=== PATIENT | female | born 1980 | race Caucasian/White ===

== ENCOUNTER 2022-03-20 13:30 | Emergency (ER) | payer OTHER, SELFPAY ==
--- NOTE | ~2022-03-20 | XR_ITS ---
XR abdomen/kub 1V 03/20/2022 14:03 INDICATION: Constipation. Right upper quadrant pain TECHNIQUE: KUB COMPARISON: None FINDINGS: Bowel gas pattern is normal. There is no evidence of free air, mass, organomegaly, ascites or obstruction. No abnormal calculi are seen. The bones appear intact. IMPRESSION: 1: No acute abdominal abnormality identified. Reviewed, dictated and finalized at location A.
[2022-03-20 13:35] VITALS: BP 115/70; PULSE 130; RESP 24; TEMP 36.8; O2SAT 100
--- NOTE | 2022-03-20 13:52 | ED.GENADULT ---
HPI - General Adult General Chief complaint: Abdominal Pain Stated complaint: tongue swollen and pains under left breast Time Seen by Provider: 03/20/22 14:10 Source: patient and RN notes reviewed Mode of arrival: ambulatory Limitations: no limitations History of Present Illness HPI narrative: 41-year-old female presents with concern for right upper quadrant abdominal pain, no bowel movement for 10 days. She reports she had surgery on her foot and has since then not had a bowel movement. Reports she has been taking pain medicine for her foot. She reports she has been nauseated today. Reports the right upper quadrant abdominal pain started today. She denies fever. Denies relieving or exacerbating factors of her abdominal pain. In a separate complaint, she reports she has a painful ulcer on her tongue. MD complaint: Abdominal pain Related Data Home Medications Medication Instructions Recorded Confirmed albuterol sulfate 90 mcg/actuation inh inhalation 03/20/22 aerosol inhaler aspirin 81 mg tablet,delayed tablet 03/20/22 release bupropion HCl 300 mg 24 hr tablet, tablet PO 03/20/22 extended release hydrocodone 5 mg-acetaminophen 325 tablet 03/20/22 mg tablet loratadine 10 mg tablet tablet 03/20/22 omeprazole 20 mg capsule,delayed cap 03/20/22 release rosuvastatin 5 mg tablet tablet 03/20/22 venlafaxine 150 mg cap PO 03/20/22 capsule,extended release 24 hr Allergies Allergy/AdvReac Type Severity Reaction Status Date / Time No Known Allergies Allergy Unverified 08/12/17 13:40 Review of Systems Review of Systems: CONSTITUTIONAL: Denies malaise, chills, sweats, or fever. ENT: Denies rhinorrhea, congestion, sinus pain, otalgia or sore throat. Reports an ulceration on her tongue CARDIOVASCULAR: Denies chest pain, palpitations, or edema. RESPIRATORY: Denies cough or dyspnea. GASTROINTESTINAL: Reports right upper quadrant abdominal pain, nausea. Denies vomiting, diarrhea, bloody, or mucous stools. GENITOURINARY: Denies dysuria or hematuria. MUSCULOSKELETAL: Denies myalgia. NEUROLOGIC: Denies headache. All systems reviewed & are unremarkable except as noted in HPI and below PMFSH Comments At time of signature, agree with nursing past medical, surgical, social and family history. There is no relevant family history pertinent to the presenting complaint Exam Narrative: GENERAL: Nontoxic appearing and in no acute distress. HEAD: Normocephalic, atraumatic. EYES: PERRLA, conjunctivae clear ENT: Mucous membranes moist. Oropharynx without edema, erythema. Ulceration noted on the top of the tongue and the underside of the tongue on the right side. Tonsils not enlarged and without exudate. NECK: Supple. No lymphadenopathy CHEST: Speaks in full sentences. No respiratory distress. HEART: Regular rate and rhythm. ABDOMEN: Soft, obese nondistended. Right upper quadrant tenderness. No guarding, rebound tenderness, or rigid. No pulsatilla masses. Bowel sounds present in all four quadrants. No organomegaly. Negative Villar?s sign. No periumbilical tenderness. No Supra public tenderness or distension. No surface trauma noted SKIN: Warm, dry, no rash. NEURO: Alert and oriented x3. PSYCH: Normal mood and affect Course Course Emergency Course: Discussed x-ray findings with patient, discussed limited diagnostic capability at [facility], discussed transfer to emergency department for further evaluation of symptoms. Patient chooses to not go to the emergency department at this time, she would like to be treated for constipation, she understands reasons to go to the emergency department if her symptoms worsen, or if she does not have a bowel movement after using prescribed medications in the next 24 to 36 hours. Patient is aware of diagnosis, understands and agrees to treatment plan. Anticipatory guidance given. Patient agrees to follow-up as directed and is aware of reasons to seek care at the emergency de
[2022-03-20 14:25] VITALS: BP 115/70; PULSE 105; RESP 20
== END 2022-03-20 14:25 | disposition home or self-care (01) ==
PROVIDERS: Emergency Provider Nurse Practitioner; PCP Internal Medicine
DX: K14.0 Glossitis (principal); K59.00 Constipation, unspecified; R10.11 Right upper quadrant pain; Z79.82 Long term (current) use of aspirin; E78.00 Pure hypercholesterolemia, unspecified; K21.9 Gastro-esophageal reflux disease without esophagitis; F41.9 Anxiety disorder, unspecified
CPT/HCPCS: 74018; 99203; G0463

== ENCOUNTER 2022-12-31 17:48 | Emergency (ER) | payer OTHER, SELFPAY ==
[2022-12-31 17:53] VITALS: BP 116/67; PULSE 92; RESP 16; TEMP 36.8; O2SAT 98
--- NOTE | 2022-12-31 18:17 | ED.FEMALEGU ---
HPI - Female Genitourinary General Chief complaint: Urogenital-Female Stated complaint: Urinary Problem Time Seen by Provider: 12/31/22 18:14 Source: patient and RN notes reviewed Mode of arrival: ambulatory Limitations: no limitations History of Present Illness HPI Narrative: Patient presents today complaining of a one-week history of dysuria, frequency, incomplete bladder emptying, lower abdominal pain, back pain. She has tried no [id number] treatment prior to arrival. No recent antibiotic use. She is not currently menstruating. Related Data Allergies Allergy/AdvReac Type Severity Reaction Status Date / Time No Known Allergies Allergy Unverified 08/12/17 13:40 Review of Systems Review of Systems: CONSTITUTIONAL: Denies body aches, fever, chills, or sweats. EYES: Denies visual changes, redness, or discharge. ENT: Denies rhinorrhea, congestion, sore throat, or otalgia. CARDIOVASCULAR: Denies chest pain, palpitations, or edema. RESPIRATORY: Denies cough or dyspnea. GASTROINTESTINAL: Denies nausea, vomiting, or diarrhea.+ lower abdominal pain GENITOURINARY: + dysuria, frequency SKIN: Denies rash, itching, or wounds. MUSCULOSKELETAL: Denies joint pain, or myalgia.+ back pain NEUROLOGIC: Denies headache, numbness, tingling, or weakness. PSYCH: Denies depression or anxiety. PMFSH Comments At time of signature, I have reviewed and agree with nursing past medical, surgical, social and family history unless otherwise noted. Please see nursing chart for further information. There is no relevant family history pertinent to the presenting complaint Exam Narrative: GENERAL: Well-appearing, well-nourished, and in no acute distress. HEAD: Normocephalic, atraumatic. EYES: EOMI. No redness or drainage. Conjunctivae normal. ENT: Mucous membranes pink and moist. NECK: Normal AROM. CHEST: No respiratory distress. Clear to auscultation. HEART: Regular rate and rhythm. No murmur appreciated. Normal peripheral pulses. ABDOMEN: Soft, nondistended, normal active bowel sounds.+ suprapubic tenderness.-CVAT EXTREMITIES: Normal range of motion. No edema. SKIN: Warm, dry, no rash. Capillary refill normal. Normal skin turgor. NEURO: No focal deficits. Alert and oriented x3. Gait steady. PSYCH: Normal affect. No signs of depression or anxiety. Course Course Level of Care: Express Care Visit Vital Signs Vital signs: Vital Signs Temperature 98.2 F 12/31/22 17:53 Pulse Rate 92 12/31/22 17:53 Respiratory Rate 16 12/31/22 17:53 Blood Pressure 116/67 12/31/22 17:53 Pulse Oximetry 98 12/31/22 17:53 Oxygen Delivery Room Air 12/31/22 17:53 Temperature 98.2 F 12/31/22 17:53 Pulse Rate 92 12/31/22 17:53 Respiratory Rate 16 12/31/22 17:53 Blood Pressure 116/67 12/31/22 17:53 Pulse Oximetry 98 12/31/22 17:53 Oxygen Delivery Room Air 12/31/22 17:53 Reviewed MDM - Female Genitourinary MDM Narrative Medical decision making narrative: Symptoms consistent with UTI. Prescription for cephalexin sent pharmacy. Anticipatory guidance given. Differential Diagnosis Differential diagnosis: Likely urinary tract infection, vaginitis, cystitis and other (Pyelonephritis, interstitial cystitis) Lab Data Attestation: I reviewed the patient's lab results. Labs: Urine Glucose Negative Reference Range: Negative Urine Bilirubin Negative Reference Range: Negative Urine Ketone Negative Reference Range: Negative Urine Specific [place] 1.025 Reference Range:1.001-1.035 Urine Blood 2+ Reference Range: Negative * * Urine pH
== END 2022-12-31 18:25 | disposition home or self-care (01) ==
PROVIDERS: Emergency Provider Nurse Practitioner
DX: N30.01 Acute cystitis with hematuria (principal); E78.00 Pure hypercholesterolemia, unspecified; K21.9 Gastro-esophageal reflux disease without esophagitis
CPT/HCPCS: 81003; 87086; 87088; 99213; G0463

== ENCOUNTER 2023-12-24 10:09 | Emergency (ER) | payer OTHER, SELFPAY ==
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
[2023-12-24 10:18] VITALS: BP 133/92; PULSE 78; RESP 17; O2SAT 100
--- NOTE | 2023-12-24 10:18 | ECG_ITS ---
SEE SCANNED COPY FOR CONFIRMED REPORT MTDD
[2023-12-24 10:30] VITALS: O2SAT 98
[2023-12-24 10:38] LABS: Basophils Absolute Auto 0.1 K/mm3 (0.0-0.1); Basophils Percent Auto 0.9 % (0.2-1.2); Eosinophils Absolute Auto 0.3 K/mm3 (0-0.3); Eosinophils Percent Auto 3.2 % (0-4.4); Hematocrit 52.1 % (37.0-47.0); Hemoglobin 17.2 g/dL (12.0-15.0); Immature Granulocyte Absolute 0.03 K/mm3 (0.00-0.031); Immature Granulocyte Percent A 0.3 % (0-0.5); Lymphocytes Absolute Auto 2.14 K/mm3 (0.9-3.2); Lymphocytes Percent Auto 21.1 % (18.3-44.2); Mean Corpuscular Volume 93.9 fl (80-100); Mean Platelet Volume 9.5 fl (7.4-10.4); Monocytes Absolute Auto 0.7 K/mm3 (0.1-0.6); Monocytes Percent Auto 6.5 % (2.6-8.5); Neutrophils Absolute Auto 6.9 K/mm3 (1.3-6.7); Platelet Count Result 336 k/mm3 (150-375); Red Blood Count 5.55 M/mm3 (4.2-5.4); White Blood Count 10.2 K/mm3 (4.5-10.0)
[2023-12-24 10:51] LABS: Alanine Aminotransferase 25 U/L (6-35); Albumin Level 4.9 g/dL (3.5-5.1); Alkaline Phosphatase 97 U/L (38-126); Anion Gap 9 mmol/L (4-12); Aspartate Amino Transferase 26 U/L (14-36); Bilirubin,Total 0.7 mg/dL (0.2-1.3); Blood Urea Nitrogen 10 mg/dL (7-17); Calcium 10.2 mg/dL (8.4-10.2); Carbon Dioxide 28 mmol/L (22-30); Chloride 104 mmol/L (98-107); Estimated CRCL calculation 73 ml/min; Estimated Glomerular Filt Rate > 60; Glucose 91 mg/dL (65-110); Potassium 4.2 mmol/L (3.4-5.0); Sodium 141 mmol/L (137-145)
[2023-12-24 11:02] LABS: Troponin I < 0.012 ng/mL (0.000-0.034)
[2023-12-24 11:18] VITALS: BP 133/90; PULSE 90; RESP 23; O2SAT 96
== END 2023-12-24 11:26 | disposition home or self-care (01) ==
PROVIDERS: Emergency Provider Nurse Practitioner Family
DX: J40 Bronchitis, not specified as acute or chronic (principal); R07.89 Other chest pain; S20.212A Contusion of left front wall of thorax, initial encounter; Y04.2XXA Assault by strike against or bumped into by another person, initial encounter
CPT/HCPCS: 36415; 71101; 80053; 84484; 85025; 93005; 99284

== ENCOUNTER 2024-03-03 15:33 | Outpatient (CLI) | payer OTHER, SELFPAY ==
[2024-03-03 16:50] LABS: Thyroid Stimulating Hormone 0.735 uIU/mL (0.465-4.680)
[2024-03-05 07:08] LABS: FSH 68.1 mIU/mL
[2024-03-09 03:14] LABS: Estradiol, Ultrasensitive 9 pg/mL
== END 2024-03-03 15:34 | disposition home or self-care (01) ==
LOC: ANHLAB 15:34
PROVIDERS: PCP Nurse Practitioner; Visit Provider Student in an Organized Health Care Education/Training Program
DX: R30.0 Dysuria (principal); N91.2 Amenorrhea, unspecified
CPT/HCPCS: 36415; 82670; 83001; 84443; 87086

== ENCOUNTER 2024-04-27 14:14 | Outpatient (CLI) | payer OTHER, SELFPAY ==
--- NOTE | ~2024-04-27 | MM_ITS ---
EXAMINATION: MM screening vanessa BI w emigdio HISTORY: Screening TECHNIQUE: Craniocaudal and mediolateral oblique 3-D tomosynthesis images were obtained and synthetic 2-D images were generated. CAD analysis was submitted and interpreted. COMPARISON: No prior mammogram is available for comparison at this institution. BREAST PARENCHYMAL COMPOSITION: Not dense: There are scattered areas of fibroglandular density. FINDINGS: There are bilateral asymmetry involving the upper outer quadrant of both breasts. There are no suspicious calcifications or architectural distortion. IMPRESSION: 1. Bilateral breast asymmetries. 2. Additional spot compression and mediolateral views with possible follow-up breast ultrasound recom mended. BI-RADS Category 0: Incomplete: Needs additional imaging evaluation. Reviewed, dictated and finalized at location B. IMPRESSION: 1. Bilateral breast asymmetries. 2. Additional spot compression and mediolateral views with possible follow-up b reast ultrasound recommended. BI-RADS Category 0: Incomplete: Needs additional imaging evaluation.
== END 2024-04-27 14:15 | disposition home or self-care (01) ==
LOC: ANHIMG 14:16
PROVIDERS: PCP Nurse Practitioner; Visit Provider Student in an Organized Health Care Education/Training Program
DX: Z12.31 Encounter for screening mammogram for malignant neoplasm of breast (principal); R92.8 Other abnormal and inconclusive findings on diagnostic imaging of breast
CPT/HCPCS: 77063; 77067

== ENCOUNTER 2024-05-26 09:01 | Emergency (ER) | payer OTHER, SELFPAY ==
--- NOTE | 2024-05-26 09:03 | ED.URI ---
HPI - URI/Sore Throat General Chief Complaint: Upper Respiratory Infection Stated Complaint: COUGH/CONGESTION/SOB/SORE THROAT/EARACHE Time Seen by Provider: 05/26/24 09:03 Source: patient Mode of arrival: ambulatory Limitations: no limitations History of Present Illness HPI Narrative: Nola is a 43-year-old female patient presenting to the clinic today with complaints of cough, congestion, shortness of breath, sore throat, ear pain, and UTI symptoms x2 days. She reports she is having burning, frequency, and urgency with urination for the past 2 days. States she has had some shortness of breath and a productive cough with mucus. Denies any chest pain. No known sick contacts. Is a current smoker of half pack per day for over 30 years. MD elicited complaint: cough, sore throat, nasal congestion and other (Ear pain, shortness of breath, congestion) Related Data Allergies Allergy/AdvReac Type Severity Reaction Status Date / Time No Known Allergies Allergy Verified 05/26/24 09:31 Review of Systems Review of Systems: Pertinent positives per HPI. Patient denies any fever, chills, rash, headache, visual changes, dizziness, chest pain, palpitations, nausea, vomiting, diarrhea, constipation, abdominal pain, or any urinary issues. [facility] Surgical History Surgical History H/O hernia repair History of tonsillectomy History of tubal ligation Hx of cholecystectomy Family History Family History Grandparent Diabetes mellitus Hypertension Cerebrovascular accident Father No problems noted. Mother No problems noted. Sibling No problems noted. Social History Social History Smoking status: Current every day smoker Tobacco type: cigarettes Second hand tobacco smoke exposure: Yes Alcohol intake: current Substance use: current Substance use type: marijuana Do You Feel Safe in your Home?: Yes Lack of Transportation: No Lack of Food: Never True Current Housing: I Have Housing Concerned About Future Housing: No Difficulty Paying Gas/Electric Bills: No Difficulty Paying for Meds: No Currently Unemployed: No Education: High School Diploma/GED Difficulty w/ Childcare or Family Care: No Living arrangements: with family Occupation/Education: occupation 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 There is no relevant family history pertinent to the patient complaint. Exam Narrative: General: Well-developed, well nourished, in no apparent distress Head: Normocephalic, atraumatic Eyes: Pupils equally round and reactive to light bilaterally, EOM intact, sclera and conjunctive clear, no discharge, lids normal Ears: TMs intact and congested, ear canals clear, no drainage, grossly hearing normal. Nose: Nares patent, clear nasal discharge, no inflammation, no sinus tenderness. Mouth: Oral pharynx without lesions or masses, good dentition, MMM. Postnasal drip Neck: Supple, trachea midline, no enlargement of anterior or posterior cervical nodes, no thyroid masses or goiter palpable. Cardio: Regular rate and rhythm, s1 and s2 normal, no murmur appreciated. Resp: Diminished in the bases with faint wheezing, no rhonchi, rales, or rubs Abdomen: Soft, nondistended, pliable, bowel sounds present all 4 quadrants, suprapubic tenderness, no CVAT Course Course Emergency Course: Portions of this record may have been created with voice recognition software. Level of Care: Express Care Visit Vital Signs Vital signs: Vital Signs Temperature 36.6 C 05/26/24 09:12 Pulse Rate 60 05/26/24 09:12 Respiratory Ra
[2024-05-26 09:12] VITALS: BP 123/93; PULSE 60; RESP 16; TEMP 36.6; O2SAT 97
[2024-05-26 09:15] VITALS: O2SAT 97
[2024-05-26 09:24] LABS: EDUAAPPEAR Cloudy; EDUABILI Negative (Negative); EDUABLOOD 3+ (Negative); EDUACOLOR1 Yellow; EDUAGLUCOSE Negative (Negative); EDUAKETONE Negative (Negative); EDUALEUKO Trace (Negative); EDUANITRATE Negative (Negative); EDUAPH 6.5; EDUAPROTEIN Negative (Negative); EDUAUROBILI 0.2
[2024-05-26 09:37] LABS: EDCOVIDSCREEN Negative (Negative)
== END 2024-05-26 09:43 | disposition home or self-care (01) ==
PROVIDERS: Emergency Provider Nurse Practitioner Family
DX: J40 Bronchitis, not specified as acute or chronic (principal); N30.01 Acute cystitis with hematuria; J06.9 Acute upper respiratory infection, unspecified; Z20.822 Contact with and (suspected) exposure to COVID-19; F17.210 Nicotine dependence, cigarettes, uncomplicated; F12.90 Cannabis use, unspecified, uncomplicated
CPT/HCPCS: 81003; 87086; 87635; 99213; G0463

== ENCOUNTER 2024-06-08 10:52 | Outpatient (CLI) | payer OTHER, SELFPAY ==
--- NOTE | ~2024-06-08 | XR_ITS ---
EXAMINATION: XR chest 2V 06/08/2024 11:35 INDICATION: Cough PROCEDURE: 2 view chest COMPARISON: No prior studies for comparison. FINDINGS: The lungs are clear. The cardiomediastinal silhouette is within normal limits. There are no pleural effusions. There is no pneumothorax suspected. IMPRESSION: 1: NO ACUTE CARDIOPULMONARY DISEASE. Reviewed, dictated and finalized at location B.
[2024-06-08 11:27] LABS: Hematocrit 51.2 % (37.0-47.0); Mean Corpuscular HGB Conc 33.2 g/dl (32-36); Mean Corpuscular Hemoglobin 31.7 pg (26-34); Mean Corpuscular Volume 95.3 fl (80-100); Mean Platelet Volume 9.4 fl (7.4-10.4); Platelet Count Result 279 k/mm3 (150-375); Red Blood Count 5.37 M/mm3 (4.2-5.4); Red Cell Distribution Width 15.9 % (11.5-14.5); White Blood Count 8.8 K/mm3 (4.5-10.0)
[2024-06-08 11:33] LABS: Add Urine Microscopic? YES; Appearance Urine Cloudy (Clear); Bilirubin Urine Negative (Negative); Blood Urine 3+ (Negative); Color Urine Dark Yellow (Yellow); Glucose Urine UA Negative (Negative); Ketones Urine Negative (Negative); Leukocyte Esterase Ur Trace LEU/UL (Negative); Nitrate Urine Negative (Negative); Protein Urine Trace mg/dL (Negative); Specific Grav Ur 1.017 (1.001-1.035)
[2024-06-08 11:47] LABS: Alanine Aminotransferase 28 U/L (6-35); Albumin Level 4.1 g/dL (3.5-5.1); Alkaline Phosphatase 98 U/L (38-126); Anion Gap 8 mmol/L (4-12); Aspartate Amino Transferase 32 U/L (14-36); Bilirubin,Total 0.9 mg/dL (0.2-1.3); Blood Urea Nitrogen 10 mg/dL (7-17); Calcium 9.3 mg/dL (8.4-10.2); Carbon Dioxide 30 mmol/L (22-30); Chloride 97 mmol/L (98-107); Estimated Glomerular Filt Rate > 60; Glucose 119 mg/dL (65-110); Potassium 3.7 mmol/L (3.4-5.0); Sodium 135 mmol/L (137-145)
[2024-06-08 11:47] LABS: Amorphous Sediment Urine Moderate; Bacteria Urine None seen /hpf; RBC Urine 51-100 /hpf (0-2); Squamous Epithelial Cell Urine Moderate /hpf (Few); WBC Urine 0-3 /hpf (0-3)
[2024-06-08 12:11] LABS: Microalbumin Urine Random 7.6 mg/L (0-16.7)
[2024-06-08 12:11] LABS: Hemoglobin A1C 5.8 % (<5.7); Thyroid Stimulating Hormone 0.234 uIU/mL (0.465-4.680)
[2024-06-08 12:15] LABS: Creatinine Urine 130.5 mg/dL; MALB Creatinine Ratio 5.8 mg/g (0-30)
[2024-06-08 12:22] LABS: Free T4 Free Thyroxine 0.96 ng/mL (0.78-2.19)
== END 2024-06-08 10:53 | disposition home or self-care (01) ==
LOC: ANHLAB 10:54
PROVIDERS: Visit Provider Emergency Medicine
DX: Z00.00 Encounter for general adult medical examination without abnormal findings (principal); J31.0 Chronic rhinitis; Z72.0 Tobacco use; J40 Bronchitis, not specified as acute or chronic; R05.9 Cough, unspecified
CPT/HCPCS: 36415; 71046; 80053; 81001; 82043; 83036; 84439; 84443; 85027

== ENCOUNTER 2025-05-09 11:20 | Emergency (ER) | payer MEDICAID, SELFPAY ==
[2025-05-09 11:30] VITALS: BP 120/71; PULSE 90; RESP 18; TEMP 36.7; O2SAT 98
--- NOTE | 2025-05-09 11:40 | ED.FEMALEGU ---
HPI - Female Genitourinary General Chief complaint: Urogenital-Female Stated complaint: poss uti Time Seen by Provider: 05/09/25 11:40 Source: patient Mode of arrival: ambulatory Limitations: no limitations History of Present Illness HPI Narrative: 44 yo F presents with c/o R lower pain radiating around to R lower back with foul smelling urine and dysuria. Symptoms for weeks. No concerns for . All systems reviewed and engative except as noted above. Related Data Allergies Allergy/AdvReac Type Severity Reaction Status Date / Time No Known Allergies Allergy Verified 05/09/25 11:22 [facility] Surgical History Surgical History H/O hernia repair History of tonsillectomy History of tubal ligation Hx of cholecystectomy Family History Family History Grandparent Diabetes mellitus Hypertension Cerebrovascular accident Father No problems noted. Mother No problems noted. Sibling No problems noted. Social History Social History Smoking status: Current every day smoker Tobacco type: cigarettes Second hand tobacco smoke exposure: Yes Alcohol intake: current Substance use: current Substance use type: marijuana Do You Feel Safe in your Home?: Yes Lack of Transportation: No Lack of Food: Never True Current Housing: I Have Housing Concerned About Future Housing: No Difficulty Paying Gas/Electric Bills: No Difficulty Paying for Meds: No Currently Unemployed: No Education: High School Diploma/GED Difficulty w/ Childcare or Family Care: No Living arrangements: with family Occupation/Education: occupation Additional occupation/education comments: Academic Associate Gender identity (if verbalized by the patient): Female Comments At time of signature, agree with nursing past medical, surgical, social and family history. There is no relevant family history pertinent to the presenting complaint. Exam Narrative: GENERAL: This is a well-nourished, well-developed patient, in no apparent distress. HEAD: normocephalic, atraumatic. EYES: PERRL. Sclera clear/white. Vision is grossly intact. EARS: External ears normal NOSE: External nose normal NECK: Neck supple, non-tender without lymphadenopathy, masses or thyromegaly. CARDIOVASCULAR: Regular rate and rhythm without murmurs, gallops, or rubs. RESPIRATORY: Clear to auscultation. Breath sounds equal bilaterally. No wheezes, rales, or rhonchi. SKIN: warm, Dry, intact with no suspicious lesions or rash, good texture and turgor. NEURO: awake, alert, and oriented to person, place and time. There were no obvious focal neurologic abnormalities. EXTREMITIES: No joint tenderness, effusion, or edema noted. Course Course Level of Care: Express Care Visit Vital Signs Vital signs: Vital Signs Temperature 36.7 C 05/09/25 11:30 Pulse Rate 90 05/09/25 11:30 Respiratory Rate 18 05/09/25 11:30 Blood Pressure 120/71 05/09/25 11:30 Pulse Oximetry 98 05/09/25 11:30 Oxygen Delivery Room Air 05/09/25 11:30 Temperature 36.7 C 05/09/25 11:30 Pulse Rate 90 05/09/25 11:30 Respiratory Rate 18 05/09/25 11:30 Blood Pressure 120/71 05/09/25 11:30 Pulse Oximetry 98 05/09/25 11:30 Oxygen Delivery Room Air 05/09/25 11:30 Reviewed MDM - Female Genitourinary MDM Narrative Medical decision making narrative: urinalysis 1+ leukocytes. Urine culture ordered. Will treat with Augmentin. Patient is well-appearing, nontoxic. Agrees with plan of care. Differential Diagnosis Differential diagnosis: Likely urinary tract infection Lab Data Labs: Lab Results 05/09/25 Range/Units 11:39 POC Urine Color Yellow POC Urine Clarity Clear POC Urine pH 7.5 POC Ur Specif [place] 1.015 POC Urine Protein Negative (Negative) POC Ur Glucose (UA) Negative (Negative) POC Urine Ketones Negative (Negative) POC Urine Blood 2+ (Negative) POC Urine Nitrite Negative (Negative) POC Urine Bilirubin Negative (Negative) POC Urine Urobilinogen 0.2 POC U Leukocyte Esteras 1+ (Negative) Discharge Plan Discharge Clinical Impression: Urinary tract infection Patient Disposition: Home Condition: Stable Instructions: Antibiotic Form, Urinary Tract Infection in Women (ED) Additional Instructions: take antibiotic as prescribed until gone. Drink at least 64 oz water a day. See your doctor symptoms are not improving. If you have severe pain, vomiting, fever go to the ER. Patient Language: Nepalese Prescriptions: New amoxicillin-pot clavulanate [Augmentin] 500-125 mg tablet 1 tablet PO BID 5 Days Qty: 10 0RF No Action estradiol 10 mcg tablet 10 mcg vaginal 2XW Qty: 8 6RF Follow-up/Referrals: PHYSICIAN,RESOURCE DEVELOPMENT MANAGER [Primary Care Provider, Internal Medicine] Time of Disposition: 11:45
--- OUTSIDE RECORDS SUMMARY | 2025-05-09 11:40 | XMS_ITS | Clinical Summary ---
Author Organization [facility] Address [address] [place] [address] Care Team Providers Care Marketing Communications Leader Name Role Phone Elliot Carr MD Primary Care Provider [phone] Allergies No known active allergies Medications buPROPion XL (WELLBUTRIN XL) 300 mg 24 hr tablet Take 300 mg by mouth daily Active senna-docusate (PERICOLACE) 8.6-50 mg Take 1 tablet by mouth daily 30 tablet 03/17/20 22 Active Additional Information Patient not taking.Reported on 05/15/2022 albuterol HFA (PROVENTIL HFA,VENTOLIN HFA,PROAIR HFA) 90 mcg/actuation inhaler INHALE 2 PUFFS BY MOUTH THREE TIMES DAILY 06/30/20 18 Active albuterol HFA (PROVENTIL HFA,VENTOLIN HFA,PROAIR HFA) 90 mcg/actuation inhaler 03/16/20 22 Active citalopram (CeleXA) 40 mg tablet Take 40 mg by mouth daily Active rosuvastatin (CRESTOR) 5 mg tablet Take 5 mg by mouth daily 03/15/20 22 Active ondansetron ODT (ZOFRAN-ODT) 4 mg disintegrating tablet DISSOLVE 1 TABLET ON THE TONGUE EVERY 8 HOURS NEEDED FOR NAUSEA AND VOMITING 03/20/20 22 Active senna 8.6 mg tablet Take 3 tablets by mouth daily 03/20/20 22 Active budesonide-formote roL (SYMBICORT) 80-4.5 mcg/actuation inhaler Inhale 2 puffs 2 (two) times a day Rinse mouth with water after use. Do not swallow. 1 each 07/03/[address] (PROTONIX) 40 mg EC tablet Take 1 tablet (40 mg total) by mouth daily 30 tablet 11 07/03/[address] (PROTONIX) 40 mg EC tablet Take 1 tablet (40 mg total) by mouth daily 30 tablet 11 08/02/20 24 025 Active famotidine (PEPCID) 40 mg tablet Take 1 tablet (40 mg total) by mouth nightly 30 tablet 08/02/20 24 025 Active Active Problems Problem Noted Date Diagnosed Date Esophageal stenosis 08/18/2024 Erosive esophagitis 08/18/2024 Dysphagia 07/03/2024 Closed trimalleolar fracture of right ankle 01/2022 Overview (03/17/2022): Added automatically from request for surgery [id number] Umbilical hernia without obstruction and without gangrene 06/10/2020 Assessment & Plan (06/10/2020 1:05 PM CDT): Reducible, without skin breakdown, this does not appear to be the cause of her discomfort. She actually has no pain at this site. Will need work up for her main complaints by GI, and once this is resolved she may come back to discussed repair of this hernia. Heartburn 06/10/2020 Assessment & Plan (06/10/2020 1:04 PM CDT): Patient recently increased omeprazole from 20 to 40 mg daily, continue and will send to GI for eval and work up. Vomiting 06/10/2020 Assessment & Plan (06/10/2020 1:04 PM CDT): Continue zofran as needed, GI eval and work up. Mild intermittent asthma with acute exacerbation 08/10/2018 Pulmonary nodules/lesions, multiple 08/10/2018 Renal stone 10/05/2017 Encounters Date Type Department Care Team Description 03/27/2025 Telephone [facility] G[facility]ology at [address] [place] [address] Kathrine Henry 02/07/2025 Telephone [facility] Gastroenterology at [address] [place] [address] Kathrine Henry from Last 3 Months Immunizations Immunization Administration Dates Next Due Hep A, Adult 06/20/2015 Influenza, Quadrivalent, Split, Intramuscular ,05/30/2018 Pneumococcal Polysaccharide PPV23 07/29/2018 Tdap 12/18/2014 Surgical History Surgery Date Site/Laterality Comments TUBAL LIGATION CHOLECYSTECTOMY Family History Medical History Relation Name Comments Diabetes Maternal Grandmother Heart disease Maternal Grandmother Hypertension Maternal Grandmother Stroke Maternal Grandmother Asthma Mother Relation Name Status Comments Maternal Grandfather Maternal Grandmother Mother Social History Tobacco Use Types Packs/Day Years Used Date Smoking Tobacco: Every Day Cigarettes 1 30.8 Started: 07/03/1994 Smokeless Tobacco: Never Alcohol Use Standard Drinks/Week Comments Yes 0 (1 standard drink = 0.6 oz pur e alcohol) socially AUDIT-C Answer Date Recorded Q1: How often do you have a drink containing alc ohol? 2-4 times a month 05/15/2022 Average Number of Drinks Not on file 022 Frequency of Binge Drinking Not on file 10/2021 Personal Safety Answer Date Recorded Have you ever been in or are you currently in a harmful physical or emotional relationship or is someone making you feel afraid or unsafe? Denies 08/02/2024 Comments No Sex and Gender Information Value Date Recorded Sex Assigned at Not on file Legal Sex Female 10:44 AM METAL POLISHER Gender Identity Not on file Sexual Orientation Not on file Obstetrics History Last Filed Vital Signs Vital Sign Reading Time Taken Comments Blood Pressure 120/77 08/02/2024 9:55 AM METAL POLISHER Pulse 74 08/02/2024 9:55 AM METAL POLISHER Temperature 36.8 C (98.3 F) 08/02/2024 9:55 AM METAL POLISHER Respiratory Rate 14 08/02/2024 9:55 AM METAL POLISHER Oxygen Saturation 99% 08/02/2024 9:55 AM METAL POLISHER Inhaled Oxygen Concentration - - Weight 58.1 kg (128 lb) 08/02/2024 7:29 AM METAL POLISHER Height 160 cm (5' 2.99) 08/02/2024 7:29 AM METAL POLISHER Body Mass Index 22.68 08/02/2024 7:29 AM METAL POLISHER Plan of Treatment Upcoming Encounters Date Type Department Care Team (Latest Contact Info) Description 06/07/2025 2:30 PM CDT Hospital Encounter [facility] [address] [place] [address] Julien Lebron MD [address] [facility] [address] [place] [address] 06/07/2025 2:30 PM CDT - 06/07/2025 3:00 PM CDT Surgery [facility] [address] [place] [address] Julien Lebron MD [address] [facility] [address] [place] [address] ESOPHAGOGASTRODUODENOSCOPY Scheduled Procedures Name Priority Associated Diagnoses Date/Ti me ESOPHAGOGASTRODUODENOSCOPY Esophageal stenosis Erosive esophagitis 06/07/2025 2:30 PM CDT Health Maintenance Due Date Last Done Comments Cervical Cancer Screening 1979 Colon Cancer Screening-Colonoscopy 1979 Depression Screening 1979 Hepatitis C Screening 1979 Varicella Vaccines (1 of 2 - 13+ 2-dose series) 11/28/1992 Hepatitis B Screening 11/28/1997 Regular Well Visit/Exam 18-64 11/28/1997 HPV Vaccines (1 - 3-dose SCDM series) 11/28/2006 Pneumococcal vaccine <65 (2 of 2 - PCV) 07/29/2019 07/29/2018 Breast Cancer Screening-Mammogram 07/03/2021 07/03/2020, 07/03/2020, 06/21/2017 DTaP/Tdap/Td Vaccine (2 - Td or Tdap) 12/18/202403/2015 Influenza Vaccine (#1) 2025 2, 08/01/2019, 05/30/2018 Medical Devices Implanted Type Area Poultry Husbandry Worker Device Identifier Shelf Expiration Date Model / Serial / Lot Synthes Lcp Combi 129mm 7 Hole Fibula Right Distal Posterolateral Contour 02.112.114 - [id number] Implanted:Qty: 1 on 03/17/2022 by Norberto Manjarrez MD at [facility] Right: Ankle Synthes I 02.112.114 / / Synthes 2.7mm 2.1mm 20mm Self Tap Lock Stardrive Thread Head Profile T8 202.220 - [id number] Implanted:Qty: 2 on 03/17/2022 by Norberto Manjarrez MD at [facility] Right: Ankle Synthes I 202.220 / / Synthes 2.7mm 2.1mm 22mm Self Tap Lock Stardrive Thread Head Profile T8 202.222 - [id number] Implanted:Qty: 2 on 03/17/2022 by Norberto Manjarrez MD at [facility] Right: Ankle Synthes I 202.222 / / Synthes 2.7mm 2.1mm 14mm Self Tap Lock Stardrive Thread Head Profile T8 202.214 - [id number] Implanted:Qty: 1 on 03/17/2022 by Norberto Manjarrez MD at [facility] Right: Ankle Synthes I 202.214 / / Synthes 3.5mm 6mm 18mm 2.5mm Self Tap Small Hexagonal Socket Low Profile 204.818 - [id number] Implanted:Qty: 1 on 03/17/2022 by Norberto Manjarrez MD at [facility] Right: Ankle Synthes I 204.818 / / Synthes 3.5mm 6mm 16mm 2.5mm Self Tap Small Hexagonal Socket Low Profile 204.816 - [id number] Implanted:Qty: 2 on 03/17/2022 by Norberto Manjarrez MD at [facility] Right: Ankle Synthes I 204.816 / / Synthes 3.5mm 6mm 14mm 2.5mm Self Tap Small Hexagonal Socket Low Profile 204.814 - [id number] Implanted:Qty: 1 on 03/17/2022 by Norberto Manjarrez MD at [facility] Right: Ankle Synthes I 204.814 / / Synthes 3.5mm 6mm 60mm 2.5mm Self Tap Small Hexagonal Socket Low Profile 204.860 - [id number] Implanted:Qty: 1 on 03/17/2022 by Norberto Manjarrez MD at [facility] Right: Ankle Synthes I 204.860 / / Synthes 3.5mm 6mm 55mm 2.5mm Self Tap Small Hexagonal Socket Low Profile 204.855 - [id number] Implanted:Qty: 1 on 03/17/2022 by Norberto Manjarrez MD at [facility] Right: Ankle Synthes I 204.855 / / Synthes 12mm [id number] .[id number] 6 Hole Collar 1/3 Tubular Plate Bone Stainless 241.36 - [id number] Implanted:Qty: 1 on 03/17/2022 by Norberto Manjarrez MD at [facility] Right: Ankle Synthes I 241.36 / / Synthes 3.5mm 6mm 28mm 2.5mm Self Tap Small Hexagonal Socket Low Profile 204.828 - [id number] Implanted:Qty: 1 on 03/17/2022 by Norberto Manjarrez MD at [facility] Right: Ankle Synthes I 204.828 / / Synthes 3.5mm 6mm 22mm 2.5mm Self Tap Small Hexagonal Socket Low Profile 204.822 - [id number] Implanted:Qty: 1 on 03/17/2022 by Norberto Manjarrez MD at [facility] Right: Ankle Synthes I 204.822 / / Synthes 3.5mm 6mm 20mm 2.5mm Self Tap Small Hexagonal Socket Low Profile 204.820 - [id number] Implanted:Qty: 1 on 03/17/2022 by Norberto Manjarrez MD at [facility] Right: Ankle Synthes I 204.820 / / Synthes 3.5mm 6mm 38mm 2.5mm Self Tap Small Hexagonal Socket Low Profile 204.838 - [id number] Implanted:Qty: 1 on 03/17/2022 by Norberto Manjarrez MD at [facility] Right: Ankle Synthes I 204.838 / / Explanted Type Area Poultry Husbandry Worker Device Identifier Shelf Expiration Date Model / Serial / Lot [employer] Brii .062in 9in Trocar Point One End Orthopedic Wire [id number] - [id number] Explanted:Qty: 4 on 03/17/2022 by Norberto Manjarrez MD at [facility] Right: Ankle [employer] [id number] S / / Synthes 3.5mm 6mm 30mm 2.5mm Self Tap Small Hexagonal Socket Low Profile 204.830 - [id number] Explanted:Qty: 1 on 03/17/2022 by Norberto Manjarrez MD at [facility] Right: Ankle Synthes I 204.830 / / Synthes 3.5mm 6mm 32mm 2.5mm Self Tap Small Hexagonal Socket Low Profile 204.832 - [id number] Explanted:Qty: 1 on 03/17/2022 by Norberto Manjarrez MD at [facility] Right: Ankle Synthes I 204.832 / / Synthes 3.5mm 6mm 24mm 2.5mm Self Tap Small Hexagonal Socket Low Profile 204.824 - [id number] Explanted:Qty: 1 on 03/17/2022 by Norberto Manjarrez MD at [facility] Right: Ankle Synthes I 204.824 / / Procedures Procedure Name Priority Date/Time Associated Diagnosis Comments MAMMOGRAPHY, TOMOGRAPHY, BILATERAL Routine 06/21/2017 7:39 PM CDT from Last 3 Months or Most Recently Relevant to Health Maintenance Results * MAMMOGRAPHY, TOMOGRAPHY, BILATERAL (06/21/2017 7:39 PM CDT) Anatomical Region Laterality Modality Breast Bilateral Mammography 06/21/2017 7:39 PM CDT Narrative 06/21/2017 7:39 PM CDT DIAG MAMM W BRAXTON BI Acc#: [id number] DATE OF EXAM: Jun 21 2017 DIAG MAMM W BRAXTON BI HISTORY: UNSPECIFIED LUMP IN BREAST. Mild right breast pain for 2 months. Possible right breast lump felt by referring physician. COMPARISON: This is the patient's baseline exam. FINDINGS: Breast density: Heterogeneously dense. 6U diagnostic mammogram as well as spot compression radiographs of both breasts are obtained. Asymmetric fibroglandular densities are noted in the upper outer quadrants, left greater than right. Spot compression radiographs demonstrate no evidence of underlying mass. There are no suspicious masses, microcalcifications, or architectural distortions. Tomographic images demonstrate no additional findings. Digital technology was employed plus computer aided detection software (R2) was utilized in interpretation of these images. This facility utilizes a reminder system to notify patient's of yearly mammograms. IMPRESSION: BI-RADS CATEGORY 2: BENIGN FINDINGS. RECOMMEND ROUTINE FOLLOW-UP. Electronically signed by: Holden Estrella M.D. Interpreting Physician: DR BONNIE COOPER M.D. Read on: Jun 21 2017 2:43P Transcribed by: [facility] On: Jun 21 2017 2:41P Approved Electronically by: ALLISON Jaramillo, DR NICOLE on: Jun 21 2017 2:41P Ordering DR: DR CRISTAL BENJAMIN Attending DR: DR CRISTAL BENJAMIN Attending: DR CRISTAL BENJAMIN Requesting: DR CRISTAL BENJAMIN Requesting Attending Attending ID: [id number] Requesting ID: [id number] Report To 1 ID: [id number] Report To 1 Name: DR CRISTAL BENJAMIN Report To 1 FAX: [phone] NextGen Order #: Procedure Note Miscellaneous, Not In File / Provider, MD Michael - 06/22/2017 DIAG MAMM W BRAXTON BI Acc#: [id number] DATE OF EXAM: Jun 21 2017 DIAG MAMM W BRAXTON BI HISTORY: UNSPECIFIED LUMP IN BREAST. Mild right breast pain for 2 months. Possible right breast lump felt by referring physician. COMPARISON: This is the patient's baseline exam. FINDINGS: Breast density: Heterogeneously dense. 6U diagnostic mammogram as well as spot compression radiographs of both breasts are obtained. Asymmetric fibroglandular densities are noted in the upper outer quadrants, left greater than right. Spot compression radiographs demonstrate no evidence of underlying mass. There are no suspicious masses, microcalcifications, or architectural distortions. Tomographic images demonstrate no additional findings. Digital technology was employed plus computer aided detection software (R2) was utilized in interpretation of these images. This facility utilizes a reminder system to notify patient's of yearly mammograms. IMPRESSION: BI-RADS CATEGORY 2: BENIGN FINDINGS. RECOMMEND ROUTINE FOLLOW-UP. Electronically signed by: Holden Estrella M.D. Interpreting Physician: DR BONNIE COOPER M.D. Read on: Jun 21 2017 2:43P Transcribed by: [facility] On: Jun 21 2017 2:41P Approved Electronically by: DR BONNIE COOPER M.D. on: Jun 21 2017 2:41P Ordering DR: DR CRISTAL BENJAMIN Attending DR: DR CRISTAL BENJAMIN Attending: DR CRISTAL BENJAMIN Requesting: DR CRISTAL BENJAMIN Requesting Attending Attending ID: [id number] Requesting ID: [id number] Report To 1 ID: [id number] Report To 1 Name: DR CRISTAL BENJAMIN Report To 1 FAX: [phone] NextGen Order #: Cristal Benjamin MD IMG MAMMO PROCEDURES Jay malvin Result - Final from Last 3 Months or Most Recently Relevant to Health Maintenance Insurance [facility] Advance Directives For more information, please contact: [phone] * Full Code (Latest Code Status on File) Date Activated Date Inactivated Comments 08/02/2024 7:50 AM 08/02/2024 2:38 PM * Full Code Date Activated Date Inactivated Comments 08/02/2024 7:49 AM 08/02/2024 7:50 AM Care Teams Marketing Communications Leader Relationship Specialty Start Date End Date Elliot Carr MD [address] [place] [id number] PCP - General Emergency Medicine 06/09/24
--- OUTSIDE RECORDS SUMMARY | 2025-05-09 11:40 | XMS_ITS | Clinical Summary ---
Author Organization [facility] Address [address], [address] [address] Phone Care Team Providers Care Supervisor Plating And Point Assembly Name Role Phone Provider, None Primary Care Provider Luis Welsh MD Unavailable Allergies No known active allergies Medications naproxen (NAPROSYN) 500 MG Tablet Take 1 Tablet by mouth 2 times daily as needed for Moderate or more severe pain. 20 Tablet 11/18/2024 Active Active Problems Problem Noted Date Diagnosed Date Pulmonary nodules/lesions, multiple 08/10/2018 Mild intermittent asthma with acute exacerbation 08/10/2018 Renal stone 10/05/2017 Immunizations Immunization Administration Dates Next Due Hepatitis A Vaccine 06/20/2015 Influenza, Injectable, Quadrivalent 09/19/2021,1 10/01/2018,05/30/2018 Pneumococcal Vaccine Adult - 23 Valent 8 TDAP Vaccine 12/18/2014 Family History Medical History Relation Name Comments No Known Problems Father No Known Problems Half-Brother 1 No Known Problems Half-Brother 2 Mental Disorder, Other Half-Brother 3 No Known Problems Half-Brother 4 No Known Problems Half-Brother 5 No Known Problems Half-Sister No Known Problems Mother No Known Problems Son 1 No Known Problems Son 2 No Known Problems Son 3 Relation Name Status Comments Father Alive Half-Brother 1 Alive Half-Brother 2 Alive Half-Brother 3 Alive Half-Brother 4 Alive Half-Brother 5 Alive Half-Sister Alive Mother Alive Son 1 Alive Son 2 Alive Son 3 Alive Social History Tobacco Use Types Packs/Day Years Used Date Smoking Tobacco: Every Day Cigarettes 1 31.7 Started: 1993 Smokeless Tobacco: Never Tobacco Cessation:Ready to Q uit: Not Asked; Counseling Given: Not Answered Alcohol Use Standard Drinks/Week Comments Yes 0 (1 standard drink = 0.6 oz pur e alcohol) ocassional Sexually Active Control Partners Comments Not Currently Male Comments No Sex and Gender Information Value Date Recorded Sex Assigned at Female 12/18/2023 1:35 AM CDT Legal Sex Female 7:07 PM CDT Gender Identity Female 12/18/2023 1:35 AM CDT Sexual Orientation Not on file Last Filed Vital Signs Vital Sign Reading Time Taken Comments Blood Pressure 100/72 11/18/2024 11:15 AM TRANSCRIPTION Pulse 78 11/18/2024 11:15 AM TRANSCRIPTION Temperature 37.1 C (98.8 F) 11/18/2024 8:43 AM TRANSCRIPTION Respiratory Rate 18 11/18/2024 11:15 AM TRANSCRIPTION Oxygen Saturation 99% 11/18/2024 11:15 AM TRANSCRIPTION Inhaled Oxygen Concentration - - Weight 59.5 kg (131 lb 2.8 oz) 11/18/2024 8:43 A M TRANSCRIPTION Height 160 cm (5' 3) 11/18/2024 8:43 AM TRANSCRIPTION Body Mass Index 23.24 11/18/2024 8:43 AM TRANSCRIPTION Plan of Treatment Health Maintenance Due Date Last Done Comments Hepatitis C Virus (HCV) Screening 1979 Hepatitis B Immunization (1 of 3 - 19+ 3-dose series) 11/28/1998 Pap Smear 11/28/2000 Human Papillomavirus (HPV) Immunization (1 - 3-dose SCDM series) 11/28/2006 Cervical Cancer Screening (CCS) 11/28/2009 HPV/Cotest 11/28/2009 Pneumococcal Immunization Combined (2 of 2 - PCV) 07/29/2019 07/29/2018 Mammogram 07/03/2021 07/03/2020 SARS-COV-2 Immunization ( - season) 2024 06/09/2021, 05/15/2021 Cologuard 11/28/2024 Colonoscopy 11/28/2024 Colorectal Cancer Screening 11/28/2024 Immunochemical Fecal Occult Blood 11/28/2024 Td Immunization Every 10 Yea rs (Adults With 1 Tdap) 12/18/2024 12/18/2014 Influenza Immunization (#1) 05/14/2025/0 03/2022, 08/01/2019, 05/30/2018 Respiratory Syncytial Virus (RSV) Immunization (Adult) (1 - 1-dose 75+ series) 11/28/2054 DTaP/Tdap/Td Immunization Discontinued 12/18/2014 Discussion re Starting/Frequency of Mammograms Completed 07/03/2020 Meningococcal Immunization (ACWY) Aged Out No longer eligible based on patient's age to complete this topic Rotavirus Immunization Aged Out No lo nger eligible based on patient's age to complete this topic Medical Devices Implanted Type Area Spice Blender Device Identifier Shelf Expiration Date Model / Serial / Lot Stent Ureteral 6fr 22cm 2 Pigtail Curve Pusher Fluoro Mrkr Lubricious Taper Tip Bard Inlay Hdrph - [id number] Implanted:Qty: 1 on 10/05/2017 by Yoel Duong MD at [facility] IMPLANT Right: Ureter [employer] 05/12/2022 [id number] / [id number] / [id number] Staple Tacker Optifix At - [id number] Implanted:Qty: 1 on 01/22/2023 by Luis Barnes MD at [facility] IMPLANT N/A: Abdomen [employer] 07/10/2024 [id number] / [id number] / [id number] M[address] Vent[address] Sepra Echo Ps 6in Mfl Ltwt Abs Loprfl Strl Seprafilm Polyp Hydrogel Friant - [id number] Implanted:Qty: 1 on 01/22/2023 by Luis Barnes MD at [facility] IMPLANT N/A: Abdomen [employer] 05/10/2024 [id number] / [id number] / [id number] Staple Tacker Optifix At - [id number] Implanted:Qty: 1 on 01/22/2023 by Luis Barnes MD at [facility] IMPLANT N/A: Abdomen [employer] 09/09/2024 [id number] / [id number] / [id number] Procedures Procedure Name Priority Date/Time Associated Diagnosis Comments FAY SCREENING BILATERAL DIGITAL W CAD W BRAXTON Routine 07/03/2020 9:43 AM CDT Encounter for screening mammogram for malignant neoplasm of breast from Last 3 Months or Most Recently Relevant to Health Maintenance Results * FAY SCREENING BILATERAL DIGITAL W CAD W BRAXTON (07/03/2020 9:43 AM CDT) Anatomical Region Laterality Modality breast Bilateral Mammography 07/03/2020 9:13 AM CDT Narrative 07/05/2020 6:26 PM CDT - FAY SCREENING BILATERAL DIGITAL W CAD W BRAXTON BILATERAL DIGITAL SCREENING MAMMOGRAM 3D/2D WITH CAD WITH MEDIOLATERAL OBLIQUE CRANIOCAUDAL: 07/03/2020 The study was acquired using digital technology and interpreted from soft copy. Current study was also evaluated with [employer] version 7.2. CLINICAL: Routine screening. Patient has no complaints. Maternal aunt had breast cancer. No personal history of cancer. COMPARISONS: Comparison is made to exam dated: 06/21/2017 [facility]. BREAST TISSUE:The tissue of both breasts is heterogeneously dense. This may lower the sensitivity of mammography. FINDINGS: No significant masses, calcifications, or other findings are seen in either breast. There has been no significant interval change. IMPRESSION: BI-RAD 1 NEGATIVE There is no mammographic evidence of malignancy. A 1 year screening mammogram is recommended. The patient has been or will be contacted. The patient will be entered into a reminder system with a target due date of 1 year for her next screening exam. Electronically signed by: Ky strauss/terrell:07/05/2020 14:34:46 Spray Gun Repairer: Joann Hernandez)(M), [facility] letter sent: Normal Exam Reading location: [place] BI-RADS: 1 Negative Procedure Note Ky Rodríguez MD - 07/05/2020 - FAY SCREENING BILATERAL DIGITAL W CAD W BRAXTON BILATERAL DIGITAL SCREENING MAMMOGRAM 3D/2D WITH CAD WITH MEDIOLATERAL OBLIQUE CRANIOCAUDAL: 07/03/2020 The study was acquired using digital technology and interpreted from soft copy. Current study was also evaluated with [employer] version 7.2. CLINICAL: Routine screening. Patient has no complaints. Maternal aunt had breast cancer. No personal history of cancer. COMPARISONS: Comparison is made to exam dated: 06/21/2017 [facility]. BREAST TISSUE:The tissue of both breasts is heterogeneously dense. This may lower the sensitivity of mammography. FINDINGS: No significant masses, calcifications, or other findings are seen in either breast. There has been no significant interval change. IMPRESSION: BI-RAD 1 NEGATIVE There is no mammographic evidence of malignancy. A 1 year screening mammogram is recommended. The patient has been or will be contacted. The patient will be entered into a reminder system with a target due date of 1 year for her next screening exam. Electronically signed by: Ky strauss/terrell:07/05/2020 14:34:46 Spray Gun Repairer: Joann Pascual(Jacqui)(M), [facility] letter sent: Normal Exam Reading location: [facility] BI-RADS: 1 Negative us Cristal Sebastian MD IMG MAMMO ORDERABLES Fin al Result from Last 3 Months or Most Recently Relevant to Health Maintenance Care Teams Supervisor Plating And Point Assembly Relationship Specialty Start Date End Date Provider, None [place] PCP - General 01/15/23 Luis Barnes MD [address] [address] Consulting Physician General Surgery 01/15/23
[2025-05-09 11:49] LABS: EDUAAPPEAR Clear; EDUABILI Negative (Negative); EDUABLOOD 2+ (Negative); EDUACOLOR1 Yellow; EDUAGLUCOSE Negative (Negative); EDUAKETONE Negative (Negative); EDUALEUKO 1+ (Negative); EDUANITRATE Negative (Negative); EDUAPH 7.5; EDUAPROTEIN Negative (Negative); EDUASPGRAVITY 1.015; EDUAUROBILI 0.2
== END 2025-05-09 11:55 | disposition home or self-care (01) ==
PROVIDERS: Emergency Provider Nurse Practitioner Family
DX: N39.0 Urinary tract infection, site not specified (principal); F17.210 Nicotine dependence, cigarettes, uncomplicated
CPT/HCPCS: 81003; 87086; 99213; G0463

== ENCOUNTER 2025-06-10 10:15 | Emergency (ER) | payer BC, MEDICAID, SELFPAY ==
[2025-06-10 10:21] VITALS: BP 114/85; PULSE 82; RESP 18; TEMP 36.8; O2SAT 100
[2025-06-10 10:52] LABS: BEDSIDEPREGUCG Negative (Negative)
[2025-06-10 11:01] LABS: Hematocrit 46.4 % (37.0-47.0); Hemoglobin 15.6 g/dL (12.0-15.0); Immature Granulocyte Percent A 0.3 % (0-0.5); Lymphocytes Absolute Auto 2.67 K/mm3 (0.9-3.2); Mean Corpuscular HGB Conc 33.6 g/dl (32-36); Mean Corpuscular Hemoglobin 32.4 pg (26-34); Mean Corpuscular Volume 96.5 fl (80-100); Nucleated Red Blood Cells Absolute Auto 0.000 K/mm3 (0.0-0.012); Nucleated Red Blood Cells Perc 0.0 % (0.0-0.2); Platelet Count Result 319 k/mm3 (150-375); Red Blood Count 4.81 M/mm3 (4.2-5.4); White Blood Count 8.6 K/mm3 (4.5-10.0)
[2025-06-10 11:12] LABS: Alanine Aminotransferase 31 U/L (6-35); Albumin Level 4.0 g/dL (3.5-5.1); Alkaline Phosphatase 97 U/L (38-126); Anion Gap 7 mmol/L (4-12); Aspartate Amino Transferase 40 U/L (14-36); Bilirubin,Total 0.5 mg/dL (0.2-1.3); Blood Urea Nitrogen 11 mg/dL (7-17); Calcium 8.9 mg/dL (8.4-10.2); Carbon Dioxide 28 mmol/L (22-30); Chloride 101 mmol/L (98-107); Estimated CRCL calculation 69 ml/min; Estimated Glomerular Filt Rate > 60; Glucose 94 mg/dL (65-110); Potassium 4.0 mmol/L (3.4-5.0); Sodium 136 mmol/L (137-145); Total Protein 7.0 g/dL (6.3-8.2)
[2025-06-10 11:35] LABS: Add Urine Microscopic? YES; Appearance Urine Cloudy (Clear); Glucose Urine UA Negative (Negative); Leukocyte Esterase Ur 3+ LEU/UL (Negative); Need Manual Microscopic Reviewed; Nitrate Urine Positive (Negative); Non Pathogenic Casts 0-2; Specific Grav Ur 1.017 (1.001-1.035)
--- NOTE | 2025-06-10 12:03 | ED.GENADULT ---
HPI - General Adult General Chief complaint: Back Pain/Injury Stated complaint: kidney problem Time Seen by Provider: 06/10/25 10:35 History of Present Illness HPI narrative: Patient is a 44-year-old female who presents ER with concerns for urinary infection. She has foul-smelling urine. She has recently diagnosed with UTI treated with Augmentin. She feels like her symptoms did not improve and she started having pain going upper abdomen into her left flank. No fevers or chills. Mild nausea. No chest pain or chest pressure. Related Data Allergies Allergy/AdvReac Type Severity Reaction Status Date / Time No Known Allergies Allergy Verified 06/10/25 10:35 Review of Systems Review of Systems: All systems reviewed & are unremarkable except as noted in HPI and below Constitutional: Constitutional: Reports no additional constitutional complaints Cardiovascular: Cardiovascular: Reports no additional cardiovascular complaints Respiratory: Respiratory: Reports no additional respiratory complaints Gastrointestinal: Gastrointestinal: Reports no additional gastrointestinal complaints Genitourinary: Genitourinary: Reports no additional female genitourinary complaints [facility] Surgical History Surgical History H/O hernia repair History of tonsillectomy History of tubal ligation Hx of cholecystectomy Family History Family History Grandparent Diabetes mellitus Hypertension Cerebrovascular accident Father No problems noted. Mother No problems noted. Sibling No problems noted. Social History Social History Smoking status: Current every day smoker Tobacco type: cigarettes Second hand tobacco smoke exposure: Yes Alcohol intake: current Substance use: current Substance use type: marijuana Do You Feel Safe in your Home?: Yes Lack of Transportation: No Lack of Food: Never True Current Housing: I Have Housing Concerned About Future Housing: No Difficulty Paying Gas/Electric Bills: No Difficulty Paying for Meds: No Currently Unemployed: No Education: High School Diploma/GED Difficulty w/ Childcare or Family Care: No Living arrangements: with family Occupation/Education: occupation Additional occupation/education comments: Database Manager Gender identity (if verbalized by the patient): Female Exam Narrative: GENERAL: Well-appearing, well-nourished, and in no acute distress. HEAD: Normocephalic, atraumatic. ENT: Mucous membranes moist. CHEST: Clear to auscultation. No respiratory distress. HEART: Regular rate and rhythm. Normal peripheral pulses. ABDOMEN: Soft, nontender, nondistended. EXTREMITIES: Normal range of motion. No edema. SKIN: Warm, dry, no rash. NEURO: Alert and oriented x3. PSYCH: Normal mood and affect. Course Course Emergency Course: Previous urine culture showed E coli. Patient's urine again looks infected. CBC and CMP unremarkable. Discharge with oral antibiotics as well as antiemetics. Likely ascending UTI and/or early pyelo. Vital Signs Vital signs: Vital Signs Temperature 98.2 F 06/10/25 10:21 Pulse Rate 82 06/10/25 10:21 Respiratory Rate 18 06/10/25 10:21 Blood Pressure 114/85 06/10/25 10:21 Pulse Oximetry 100 06/10/25 10:21 Oxygen Delivery Room Air 06/10/25 10:21 Temperature 98.2 F 06/10/25 10:21 Pulse Rate 82 06/10/25 10:21 Respiratory Rate 18 06/10/25 10:21 Blood Pressure 114/85 06/10/25 10:21 Pulse Oximetry 100 06/10/25 10:21 Oxygen Delivery Room Air 06/10/25 10:21 Medical Decision Making Vital Signs Vital Signs: Vital Signs Temperature 98.2 F 06/10/25 10:21 Pulse Rate 82 06/10/25 10:21 Respiratory Rate 18 06/10/25 10:21 Blood Pressure 114/85 06/10/25 10:21 Pulse Oximetry 100 06/10/25 10:21 Oxygen Delivery Room Air 06/10/25 10:21 Temperature 98.2 F 06/10/25 10:21 Pulse Rate 82 06/10/25 10:21 Respiratory Rate 18 06/10/25 10:21 Blood Pressure 114/85 06/10/25 10:21 Pulse Oximetry 100 06/10/25 10:21 Oxygen Delivery Room Air 06/10/25 10:21 Lab Data 06/10/25 10:54 06/10/25 10:54 Labs: Lab Results 06/10/25 06/10/25 Range/Units 10:34 10:54 WBC 8.6 (4.5-10.0) K/mm3 RBC 4.81 (4.2-5.4) M/mm3 Hgb 15.6 H (12.0-15.0) g/dL Hct 46.4 (37.0-47.0) % MCV 96.5 (80-100) fl MCH 32.4 (26-34) pg MCHC 33.6 (32-36) g/dl RDW 13.4 (11.5-14.5) % Plt Count 319 (150-375) k/mm3 MPV 9.5 (7.4-10.4) fl Immature Gran % (Auto) 0.3 (0-0.5) % Neut % (Auto) 59.2 (45.5-73.1) % Lymph % (Auto) 31.0 (18.3-44.2) % [place] % (Auto) 5.8 (2.6-8.5) % Eos % (Auto) 3.0 (0-4.4) % Baso % (Auto) 0.7 (0.2-1.2) % Lymph # (Auto) 2.67 (0.9-3.2) K/mm3 [place] # (Auto) 0.5 (0.1-0.6) K/mm3 Eos # (Auto) 0.3 (0-0.3) K/mm3 Baso # (Auto) 0.1 (0.0-0.1) K/mm3 Abs Immat Gran (auto) 0.03 (0.00-0.031) K/mm3 Absolute Neuts (auto) 5.1 (1.3-6.7) K/mm3 Absolute Nucleated RBC 0.000 (0.0-0.012) K/mm3 Nucleated RBC % 0.0 (0.0-0.2) % Sodium 136 L (137-145) mmol/L Potassium 4.0 (3.4-5.0) mmol/L Chloride 101 (98-107) mmol/L Carbon Dioxide 28 (22-30) mmol/L Anion Gap 7 (4-12) mmol/L BUN 11 (7-17) mg/dL Creatinine 0.74 (0.7-1.0) mg/dL Estim Creat Clear Calc 69 ml/min Estimated GFR > 60 (59 - ) Glucose 94 (65-110) mg/dL Calcium 8.9 (8.4-10.2) mg/dL Total Bilirubin 0.5 (0.2-1.3) mg/dL AST 40 H (14-36) U/L ALT 31 (6-35) U/L Alkaline Phosphatase 97 (38-126) U/L Total Protein 7.0 (6.3-8.2) g/dL Albumin 4.0 (3.5-5.1) g/dL Urine Color Yellow (Yellow) Urine Appearance Cloudy H (Clear) Urine pH 6.5 (5.0-9.0) Ur Specific [place] 1.017 (1.001-1.035) Urine Protein Negative (Negative) mg/dL Urine Glucose (UA) Negative (Negative) mg/dL Urine Ketones Negative (Negative) mg/dL Ur Blood (Man) 3+ H (Negative) Urine Nitrate Positive H (Negative) Urine Bilirubin Negative (Negative) Urine Urobilinogen 1.0 (<2.0) mg/dL Add Ur Microanalysis Reviewed Leukocyte Esterase Rfl 3+ H (Negative) CHRISTI/UL Urine RBC 21-50 H (0-2) /hpf Urine WBC 51-100 H (0-3) /hpf Ur Squamous Epith Cells Moderate (Few) /hpf Urine Bacteria 4+ /hpf Urine Casts 0-2 POC Urine HCG, Qual Negative (Negative) Discharge Plan Discharge Clinical Impression: UTI (urinary tract infection) Patient Disposition: Home Condition: Stable Instructions: Antibiotic Form, Urinary Tract Infection in Women (ED) Additional Instructions: You should return to the emergency department if you develop severe nausea and vomiting and are unable to keep liquids down, if you develop severe back/flank or stomach pain, or if your symptoms are not clearly improving at home. Patient Language: Kyrgyz Prescriptions: New cefpodoxime 200 mg tablet 200 mg PO BID Qty: 20 0RF Rx Instructions: must administer with a meal/food ondansetron 4 mg tablet,disintegrating 4 mg PO Q6H PRN (Reason: nausea and vomiting) Qty: 10 0RF No Action amoxicillin-pot clavulanate [Augmentin] 500-125 mg tablet 1 tablet PO BID 5 Days Qty: 10 0RF estradiol 10 mcg tablet 10 mcg vaginal 2XW Qty: 8 6RF Follow-up/Referrals: PHYSICIAN,BROKERAGE COORDINATOR [Primary Care Provider, Internal Medicine] Elliot Carr MD [Physician, Family Practice] - 1 Week
== END 2025-06-10 12:45 | disposition home or self-care (01) ==
PROVIDERS: Emergency Provider Emergency Medicine
DX: N39.0 Urinary tract infection, site not specified (principal); F17.210 Nicotine dependence, cigarettes, uncomplicated
CPT/HCPCS: 36415; 80053; 81001; 81025; 85025; 99283